=== PATIENT | female | born 1950 | race Caucasian/White ===

== ENCOUNTER 2022-03-19 07:30 | Day surgery (SDC) | payer MEDICARE, OTHER ==
[~2022-03-19] VITALS: Ht 162.6 cm; Wt 71.5 kg
[~2022-03-19 07:30] MED LIST: 8 HOUR650 MG PO; ACID REDUCER200 MG PO; AMBIEN5 MG PO; CETIRIZINE HCL10 MG PO; ISO D3 2,000 U1 EACH PO; LATANOPROST2.5 ML OPTH; MULTIVITAMIN1 EACH PO; RED YEAST RICE600 MG PO; TIMOLOL MALEATE5 M4 OP
--- NOTE | 2022-03-19 09:44 | NUR ---
03/19/22 0944 Oly Jiménez [id number] PATIENT TO PACU. REPORT RECIEVED. VITAL SIGNS DOCUMENTED. BREATHING EQUAL AND UNLABORED. OXYGEN SATURATIONS ABOVE 95% ON 2 LITERS VIA NASAL CANULUA. PATIENT DENIES ANY PAIN OR NAUSEA. ABDOMEN IS SOFT. EDUCATED ON PASSING GAS. IV FLUIDS INFUSING.
--- NOTE | 2022-03-19 11:00 | NUR ---
PATIENT BACK TO ROOM FROM PACU ON . RECEIVED REPORT FROM VICKY ROSS. PATIENT IS AWAKE AND TALKING. RESP EVEN AND UNLABORED BUT DECREASED AT 8. DENIES PAIN AND NAUSEA. WATER AT BESIDE. CALL LIGHT WITHIN REACH.
--- NOTE | 2022-03-19 11:32 | NUR ---
RESP EVEN AND UNLABORED. RESPIRATION RATE 10.
--- NOTE | 2022-03-19 12:15 | NUR ---
1200 RN TO ROOM AND VSS. RESP RATE 10 AND PT REPORTS FEELING MORE AWAKE AND READINESS TO GO HOME. DC INSTRUCTIONS AND PAPERWORK GIVEN. ALL QUESTIONS ANSWERED.
--- NOTE | 2022-03-20 03:09 | OR ---
[facility] [address], [place] [address] Signed DATE OF OPERATION: 03/19/2022 SURGEON: Guillermina Mcintosh MD PREOPERATIVE DIAGNOSES: 1. Unremarkable colonoscopy in 2010 at age 49. 2. Maternal aunt with colon cancer at age 85. 3. Sister with Crohn disease diagnosed at age 70. POSTOPERATIVE DIAGNOSES: 1. Cczdeii-vy-ycekuddf internal and external hemorrhoids. 2. Ivzeilq-yx-wmqttdna left-sided diverticulosis. 3. Small internal anal skin tag x1. PROCEDURE: Colonoscopy without biopsy. ESTIMATED BLOOD LOSS: None. INDICATIONS: Richard is a 71-year-old female asked to see me for her second colonoscopy. She underwent a negative screening colonoscopy in 2009 at the age of 49 [address] Cooper. To her knowledge it was negative. She told me her maternal aunt developed colon cancer at age 85 and is still alive at age 89. Her sister was diagnosed with Crohn disease at age 70. She said it has been quite miserable. Richard has no lower GI complaints. She is now a for the last seven years. She stays in excellent shape by exercising five days a week. In the office, I gave her all the pamphlet on colonoscopy. She understands the nature of that test. There is risk including, but not limited to gas bloating, crampy abdominal pain, bleeding, perforation requiring surgery, and missed diagnosis. She also understands the need for IV conscious sedation. She had expressed understanding and wished to proceed. PROCEDURE IN DETAIL: Richard was taken into our endoscopy suite and placed in the left lateral decubitus position. She was given a total of 7 mg of Versed and 100 mcg of fentanyl to cover the case. A digital rectal exam was performed and this revealed moderate external hemorrhoids, more on the right than on the left. She had good sphincter tone. There were no masses. The adult colonoscope was introduced and advanced under direct visualization of camera. She has a somewhat long narrow sigmoid colon with Electronically Signed By: GUILLERMINA MCINTOSH MD 03/20/22 0309 PATIENT NAME: ASHLEIGH WINCHESTER OPERATIVE REPORT DATE OF : 48 REPORT #: [id number] PHYSICIAN: GUILLERMINA MCINTOSH MD PCP: AUGUSTINE GOFF PA-C REPORT IS CONFIDENTIAL AND NOT TO BE RELEASED WITHOUT AUTHORIZATION [facility] [address] [place] [id number] Signed diverticulosis. It took some extra sedation in order to advance the scope up through this area into the cecum itself. Her prep was quite excellent. We could easily see the appendiceal orifice and the ileocecal valve. The scope was then slowly withdrawn. We found no polyps throughout the entire colon or rectum. Again, she has minimal to moderate left-sided diverticulosis. They are moderate in size, minimal to moderate in number, and scattered about. The rectum was unremarkable. Upon retroflexion of scope, she does have minimal to moderate internal hemorrhoid columns as well. She had a single small internal anal skin tag. After this, the gas was suctioned out. The colonoscope removed. Richard tolerated the procedure quite well. RECOMMENDATIONS: Ashleigh is welcome to follow up in 10 years for repeat colonoscopy so long as her health is sufficient. Guillermina Mcintosh MD ALB/MODL /[id number] cc: FANY Voss MD Copies: AUGUSTINE GOFF PA-C, ANDREW L MD ~ Electronically Signed By: GUILLERMINA MCINTOSH MD 03/20/22 0309 PATIENT NAME: ASHLEIGH WINCHESTER OPERATIVE REPORT DATE OF : 48 REPORT #: [id number] PHYSICIAN: GUILLERMINA MCINTOSH MD PCP: AUGUSTINE GOFF PA-C REPORT IS CONFIDENTIAL AND NOT TO BE RELEASED WITHOUT AUTHORIZATION
== END 2022-03-19 12:15 | disposition home or self-care (01) ==
LOC: OPS 07:30 → DS 07:30 → OPS 09:15
PROVIDERS: ATTEND Colon & Rectal Surgery
PROC: 0DJD8ZZ Inspection of Lower Intestinal Tract, Via Natural or Artificial Opening Endoscopic (ICD-10-PCS; principal; 2022-03-19 09:15)
DX: Z12.11 Encounter for screening for malignant neoplasm of colon (principal); Z80.0 Family history of malignant neoplasm of digestive organs; K57.30 Diverticulosis of large intestine without perforation or abscess without bleeding; K64.8 Other hemorrhoids; K64.4 Residual hemorrhoidal skin tags; K21.9 Gastro-esophageal reflux disease without esophagitis; E78.00 Pure hypercholesterolemia, unspecified; G47.00 Insomnia, unspecified; Z87.891 Personal history of nicotine dependence; Z83.79 Family history of other diseases of the digestive system
CPT/HCPCS: 99153; G0500; J2250; J3010; J7121